=== PATIENT | female | born 1985 | race Asian ===

== ENCOUNTER 2018-08-28 09:03 | Outpatient (CLI) | payer OTHER ==
[~2018-08-28 09:03] MED LIST: IRON DEXTRAN COMPLEX 25 MG in SYRINGE, DISPOSABLE, 1 EACH IV PRN; IRON DEXTRAN COMPLEX IV PRN; NORMAL SALINE 250 ML IV PRN; NORMAL SALINE IV PRN
[2018-08-28 09:27] VITALS: BP 119/82
== END 2018-08-28 14:22 | disposition home or self-care (01) ==
LOC: II 09:03 → 5TH 09:09 → II 14:22
PROVIDERS: ATTEND Internal Medicine
DX: D50.8 Other iron deficiency anemias (principal); K90.9 Intestinal malabsorption, unspecified
CPT/HCPCS: 96365; 96366; 96374; J1750; J7040; J3490

== ENCOUNTER 2018-09-04 08:54 | Outpatient (CLI) | payer OTHER ==
[~2018-09-04 08:54] MED LIST changes: -IRON DEXTRAN COMPLEX 25 MG in SYRINGE, DISPOSABLE, 1 EACH IV PRN; +IRON SUCROSE COMPLEX 400 MG in NORMAL SALINE 250 ML IV PRN
[2018-09-04 09:16] VITALS: BP 124/75
== END 2018-09-04 11:10 | disposition home or self-care (01) ==
LOC: II 08:54 → 5TH 08:57 → II 11:10
PROVIDERS: ATTEND Internal Medicine
PROC: 3E033GC Introduction of Other Therapeutic Substance into Peripheral Vein, Percutaneous Approach (ICD-10-PCS; principal; 2018-09-04)
DX: D50.8 Other iron deficiency anemias (principal); K90.9 Intestinal malabsorption, unspecified
CPT/HCPCS: 96367; J1750; J7050; 96365; 96366; J1756

== ENCOUNTER 2018-09-18 08:53 | Outpatient (CLI) | payer OTHER ==
[~2018-09-18 08:53] MED LIST changes: -IRON SUCROSE COMPLEX 400 MG in NORMAL SALINE 250 ML IV PRN
[2018-09-18 09:44] VITALS: BP 121/77
== END 2018-09-18 11:05 | disposition home or self-care (01) ==
LOC: II 08:53 → 5TH 08:54 → II 11:05
PROVIDERS: ATTEND Internal Medicine
PROC: 3E033GC Introduction of Other Therapeutic Substance into Peripheral Vein, Percutaneous Approach (ICD-10-PCS; principal; 2018-09-18)
DX: D50.8 Other iron deficiency anemias (principal); K90.9 Intestinal malabsorption, unspecified
CPT/HCPCS: 96365; 96367; J1750; J7050

== ENCOUNTER 2018-09-25 08:55 | Outpatient (CLI) | payer OTHER ==
[2018-09-25 09:20] VITALS: BP 124/78
== END 2018-09-25 10:56 | disposition home or self-care (01) ==
LOC: II 08:55 → 5TH 08:57 → II 10:56
PROVIDERS: ATTEND Internal Medicine
PROC: 3E033GC Introduction of Other Therapeutic Substance into Peripheral Vein, Percutaneous Approach (ICD-10-PCS; principal; 2018-09-25)
DX: D50.8 Other iron deficiency anemias (principal); K90.9 Intestinal malabsorption, unspecified
CPT/HCPCS: 96365; J1750; J7050; 96367; J7040